=== PATIENT | female | born 1945 | race Caucasian/White ===

== ENCOUNTER 2016-12-07 22:15 | Observation (INO) | payer OTHER ==
[~2016-12-07] VITALS: Ht 152.4 cm; Wt 47.8 kg
[~2016-12-07 22:15] MED LIST: ASPIRIN325 MG PO; CELEXA40 MG PO; DIGOXIN250 MCG PO; FIORICET WI1 CAPSULE PO; FLECAINIDE ACE100 MG PO; LASIX20 MG PO; Lopressor PO; NABUMETONE500 MG PO; PRAVACHOL80 MG PO; RESTORIL15 MG PO
[2016-12-07 23:08] LABS: HEMATOCRIT 37.2 % (36.0-46.0); MCH 27.9 PG (29.0-34.0); MCHC 33.6 G/DL (30.0-36.0); MEAN PLAT.VOLUME 8.2 uM^3 (9.5-12.4); PLATELET COUNT 519 K/uL (156-360); RBC DIS.WIDTH-CV 15.9 % (11.8-14.6); RBC DIS.WIDTH-SD 47.7 % (39-53); RED BLOOD COUNT 4.48 M/uL (3.80-5.20); WHITE BLOOD COUNT 13.2 K/uL (4.1-10.2)
[2016-12-07 23:19] LABS: CHLORIDE 101 mEq/L (99-109); POTASSIUM 3.2 mEq/L (3.7-5.4); SODIUM 135 mEq/L (136-147)
[2016-12-07 23:20] LABS: GLUCOSE 111 mg/dL (70-99)
[2016-12-07 23:22] LABS: ANION GAP 11 MEQ/L (2-14)
[2016-12-07 23:24] LABS: GFR ESTIMATE (CALCULATED) 43 mL/min/
[2016-12-07 23:25] LABS: UREA NITROGEN (BUN) 26 mg/dL (9-23)
[2016-12-07 23:28] LABS: TROP-I INTERPRETATION NEGATIVE; TROPONIN-I 0.04 ng/mL (0.0-0.30)
[2016-12-08] MEDS ORDERED: IMITREX50 MG PO (01:12)
[2016-12-08] MEDS ORDERED: METOPROLOL SUCC25 MG PO ×2 (01:12)
[2016-12-08] MEDS ORDERED: SERTRALINE HCL50 MG PO (01:12)
[2016-12-08] MEDS ORDERED: XARELTO20 MG PO (01:13)
[2016-12-08] MEDS ORDERED: FLEXERIL10 MG PO (01:13)
[2016-12-08 02:32] LABS: ADD MIUA? YES; BILIRUBIN NEGATIVE; BLOOD NEGATIVE; COLOR YELLOW ((YELLOW)); GLUCOSE (STRIP) NEGATIVE; KETONES NEGATIVE; LEUKOCYTES MODERATE; NITRITE NEGATIVE; PROTEIN (STRIP) NEGATIVE; SPECIFIC GRAVITY 1.006 (1.000-1.030); UROBILINOGEN 0.2 MG/DL (0.2-1.0)
[2016-12-08 02:40] LABS: BACTERIA RARE /HPF; EPITHELIAL CELLS NONE SEEN /HPF; MUCUS NONE SEEN /LPF; RED BLOOD CELLS 0-5 /HPF (0-5)
[2016-12-08 05:20] LABS: TROP-I INTERPRETATION NEGATIVE
[2016-12-08 11:15] LABS: TROP-I INTERPRETATION NEGATIVE; TROPONIN-I 0.07 ng/mL (0.0-0.30)
[2016-12-08 14:00] VITALS: BP 181/95
[2016-12-08 16:52] VITALS: BP 179/103
[2016-12-08 18:17] VITALS: BP 158/86
[2016-12-08 20:00] VITALS: BP 168/92
[2016-12-09] VITALS (8 sets, daily range): BP systolic 110–178; BP diastolic 64–101
[2016-12-09 05:23] LABS: HEMATOCRIT 33.2 % (36.0-46.0); MCH 28.3 PG (29.0-34.0); MCHC 33.4 G/DL (30.0-36.0); MCV 84.7 FL (83-99); MEAN PLAT.VOLUME 8.2 uM^3 (9.5-12.4); PLATELET COUNT 416 K/uL (156-360); RBC DIS.WIDTH-CV 15.5 % (11.8-14.6); RBC DIS.WIDTH-SD 47.8 % (39-53); RED BLOOD COUNT 3.92 M/uL (3.80-5.20); WHITE BLOOD COUNT 11.7 K/uL (4.1-10.2)
[2016-12-09 06:04] LABS: ALKALINE PHOSPHATASE 80 IU/L (3-129); ANION GAP 8 MEQ/L (2-14); CHLORIDE 106 MEQ/L (99-109); GFR ESTIMATE (CALCULATED) > 59 mL/min/; GLUCOSE 110 mg/dL (70-99); POTASSIUM 4.1 MEQ/L (3.7-5.4); SAMPLE HEMOLYSIS CHECK 0; SAMPLE ICTERIC CHECK 0; SAMPLE LIPEMIA CHECK 0; SODIUM 137 MEQ/L (136-147); TOTAL BILIRUBIN 0.6 MG/DL (0.0-1.0); UREA NITROGEN (BUN) 16 mg/dL (9-23)
== END 2016-12-09 17:42 | disposition home health service (06) ==
LOC: EME 22:15 → 5WEST 12-08 01:00 → EDOF 12-08 01:00 → 5WEST 12-08 13:39
PROVIDERS: Internal Medicine
DX: R07.89 Other chest pain (principal); E87.6 Hypokalemia; E87.1 Hypo-osmolality and hyponatremia; I10 Essential (primary) hypertension; E78.5 Hyperlipidemia, unspecified; R00.0 Tachycardia, unspecified; I48.2 Chronic atrial fibrillation; K21.9 Gastro-esophageal reflux disease without esophagitis; Q85.00 Neurofibromatosis, unspecified
CPT/HCPCS: 70450; 71010; 80048; 80053; 81003; 83735; 84132; 84439; 84443; 84484; 85027; 93005; 93306; 99281; 99285; G0378; G8978 GP CK; G8979 GP CI; J0360; J3480

== ENCOUNTER 2017-01-18 12:14 | Emergency (ER) | payer OTHER ==
[~2017-01-18] VITALS: Ht 154.9 cm; Wt 44.3 kg
[~2017-01-18 12:14] MED LIST changes: +FLEXERIL10 MG PO; +IMITREX50 MG PO; +METOPROLOL SUCC25 MG PO; +SERTRALINE HCL50 MG PO; +XARELTO20 MG PO
[2017-01-18 13:30] LABS: HEMATOCRIT 36.3 % (36.0-46.0); MCH 26.3 PG (29.0-34.0); MCHC 32.2 G/DL (30.0-36.0); MCV 81.6 FL (83-99); MEAN PLAT.VOLUME 8.6 uM^3 (9.5-12.4); PLATELET COUNT 359 K/uL (156-360); RBC DIS.WIDTH-CV 13.7 % (11.8-14.6); RBC DIS.WIDTH-SD 40.3 % (39-53); RED BLOOD COUNT 4.45 M/uL (3.80-5.20)
[2017-01-18 13:46] LABS: CHLORIDE 103 mEq/L (99-109); POTASSIUM 3.6 mEq/L (3.7-5.4); SODIUM 136 mEq/L (136-147)
[2017-01-18 13:48] LABS: GLUCOSE 89 mg/dL (70-99)
[2017-01-18 13:49] LABS: ANION GAP 11 MEQ/L (2-14)
[2017-01-18 13:52] LABS: GFR ESTIMATE (CALCULATED) 58 mL/min/; UREA NITROGEN (BUN) 14 mg/dL (9-23)
[2017-01-18 13:56] LABS: TROP-I INTERPRETATION NEGATIVE; TROPONIN-I 0.03 ng/mL (0.0-0.30)
[2017-01-18 13:59] LABS: MAGNESIUM 2.2 mg/dL (1.3-2.7)
[2017-01-18 18:24] VITALS: BP 153/87
== END 2017-01-18 18:25 | disposition home or self-care (01) ==
LOC: EME 12:14
DX: R00.2 Palpitations (principal); R55 Syncope and collapse; R11.10 Vomiting, unspecified; R53.1 Weakness; R51 Headache; I45.10 Unspecified right bundle-branch block; I48.91 Unspecified atrial fibrillation; Z79.01 Long term (current) use of anticoagulants; F17.200 Nicotine dependence, unspecified, uncomplicated
CPT/HCPCS: 71020; 80048; 83735; 83880; 84484; 85027; 93005; 99281; 99284; J7030